=== PATIENT | male | born 1930 | race Caucasian/White ===

== ENCOUNTER → 2018-02-12 | Outpatient (CLI) | payer MEDICARE, OTHER ==
[~2018-02-12] MED LIST: ALLO300 PO; DABI150C; DIGO.25 PO; ERGO50000 PO; GABA100 PO; HYDCHL25 PO; MELO7.5 PO; METO50ER PO; OMEP40CA12 PO; Robaxin500 MG PO; SIMV10 PO; TRAM50 PO; WARF5 PO; [UNRECOGNIZED DRUG - OTHER] PO
== END ==
LOC: PLD 07:26 → LAB SHORT 07:26
DX: D22.5 Melanocytic nevi of trunk (principal)
CPT/HCPCS: 88305

== ENCOUNTER → 2019-01-08 | Outpatient (CLI) | payer MEDICARE, OTHER ==
[2019-01-08 19:53] LABS: Percent Saturation 29.5 % (20.0-50.0)
== END | disposition home or self-care (01) ==
LOC: LAB 18:59 → LAB SHORT 18:59
PROVIDERS: Internal Medicine Hematology & Oncology
DX: D64.9 Anemia, unspecified (principal)
CPT/HCPCS: 83540; 83550

== ENCOUNTER 2019-03-16 12:08 | Day surgery (SDC) | payer MEDICARE, OTHER | END 2019-03-16 23:03 | disposition home or self-care (01) | LOC: WOUND 12:08 | DX: L97.811 Non-pressure chronic ulcer of other part of right lower leg limited to breakdown of skin (principal); I83.009 Varicose veins of unspecified lower extremity with ulcer of unspecified site; I87.2 Venous insufficiency (chronic) (peripheral); I73.9 Peripheral vascular disease, unspecified; I12.0 Hypertensive chronic kidney disease with stage 5 chronic kidney disease or end stage renal disease; N18.6 End stage renal disease; D63.1 Anemia in chronic kidney disease; I48.91 Unspecified atrial fibrillation; F03.90 Unspecified dementia, unspecified severity, without behavioral disturbance, psychotic disturbance, mood disturbance, and anxiety; E78.5 Hyperlipidemia, unspecified; M10.9 Gout, unspecified | CPT/HCPCS: G0463 ==

== ENCOUNTER 2019-03-23 15:10 | Day surgery (SDC) | payer MEDICARE, OTHER | END 2019-03-23 22:36 | disposition home or self-care (01) | LOC: WOUND | DX: L97.811 Non-pressure chronic ulcer of other part of right lower leg limited to breakdown of skin (principal); I83.009 Varicose veins of unspecified lower extremity with ulcer of unspecified site; I87.2 Venous insufficiency (chronic) (peripheral); I12.0 Hypertensive chronic kidney disease with stage 5 chronic kidney disease or end stage renal disease; N18.6 End stage renal disease; D63.1 Anemia in chronic kidney disease; F03.90 Unspecified dementia, unspecified severity, without behavioral disturbance, psychotic disturbance, mood disturbance, and anxiety | CPT/HCPCS: G0463 ==

== ENCOUNTER 2019-05-04 15:36 | Emergency (ER) | payer MEDICARE, OTHER ==
[~2019-05-04] VITALS: Wt 90.7 kg
[2019-05-04] MEDS ORDERED: CEPH500 PO (16:48)
== END 2019-05-04 17:18 | disposition home or self-care (01) ==
LOC: ER 15:36
DX: L03.113 Cellulitis of right upper limb (principal); Z79.899 Other long term (current) drug therapy
CPT/HCPCS: 73110; 99283-25

== ENCOUNTER 2021-02-09 13:06 | Emergency (ER) | payer MEDICARE ==
[~2021-02-09] VITALS: Ht 170.2 cm; Wt 70.3 kg
[~2021-02-09 13:06] MED LIST changes: +CEPH500 PO
== END 2021-02-09 14:20 | disposition home or self-care (01) ==
LOC: ER 13:06
DX: S09.90XA Unspecified injury of head, initial encounter (principal); Z79.899 Other long term (current) drug therapy
CPT/HCPCS: 70450; 99284-25

== ENCOUNTER → 2022-02-16 | Outpatient (CLI) | payer MEDICARE ==
[2022-02-16 17:47] LABS: BASOPHILS ABSOLUTE AUTO 0.04 K/mm3 (0.00-0.23); BASOPHILS PERCENT AUTO 1 % (0-2); EOSINOPHILS ABSOLUTE AUTO 0.17 K/mm3 (0.00-0.68); EOSINOPHILS PERCENT AUTO 2 % (0-6); Hematocrit 41.2 % (37.0-53.0); Hemoglobin 13.5 g/dL (13.5-17.5); IMMATURE GRAN ABSOLUTE AUTO 0.03 K/mm3 (0.00-0.10); IMMATURE GRAN PERCENT AUTO 0 % (0-1); LYMPHOCYTES ABSOLUTE AUTO 1.22 K/mm3 (0.84-5.20); LYMPHOCYTES PERCENT AUTO 15 % (21-46); MONOCYTES PERCENT AUTO 7 % (4-13); Mean Corpuscular HGB 35.3 pg (26.0-34.0); Mean Corpuscular HGB Conc 32.8 g/dL (31.5-36.5); Mean Corpuscular Volume 108 fL (80-100); NEUTROPHILS ABSOLUTE AUTO 6.05 K/mm3 (1.96-9.15); NEUTROPHILS PERCENT AUTO 75 % (41-73); Platelet Count 67 K/mm3 (150-400); RDW Coefficient Variation 15.8 % (11.7-14.2); RDW Standard Deviation 62.2 fL (35.1-46.3); Red Blood Cell Count 3.82 M/mm3 (4.30-5.90); White Blood Cell Count 8.11 K/mm3 (4.00-11.30)
[2022-02-16 17:48] LABS: Bun/Creatinine Ratio 26.4 (12.0-20.0); Calcium, Blood 9.7 mg/dL (8.5-10.1); Creatinine, Blood 1.74 mg/dL (0.60-1.20); Percent Saturation 41.6 % (20.0-50.0); Potassium, Blood 4.1 mmol/L (3.5-5.5)
[2022-02-16 17:56] LABS: Mean Platelet Volume 12.8 fL (9.1-12.4)
== END ==
LOC: LAB 16:20 → LAB SHORT 16:20
PROVIDERS: Internal Medicine
DX: E83.110 Hereditary hemochromatosis (principal); N18.31 Chronic kidney disease, stage 3a; R73.9 Hyperglycemia, unspecified
CPT/HCPCS: 36415; 80048; 82728; 83036; 83540; 83550; 85025